=== PATIENT | female | born 1995 | race Caucasian/White ===

== ENCOUNTER 2023-06-10 23:51 | Emergency (ER) | payer SELFPAY ==
[~2023-06-10] VITALS: Ht 167.6 cm; Wt 54.4 kg
[2023-06-10 23:53] VITALS: BP 130/94; PULSE 108; RESP 17; TEMP 97; O2SAT 97
[2023-06-10 23:55] VITALS: BP 123/78; PULSE 111; RESP 20; TEMP 97.4; O2SAT 98
[2023-06-11] MEDS ORDERED: buprenorphine HCL 2 MG sublingual tab SL ONE (03:50)
[2023-06-11 04:35] VITALS: BP 123/78; PULSE 111; RESP 20; TEMP 97.4; O2SAT 98
== END 2023-06-11 04:35 | disposition home or self-care (01) ==
LOC: MED 23:51
DX: F11.23 Opioid dependence with withdrawal (principal); Z79.899 Other long term (current) drug therapy
CPT/HCPCS: 99283; 99284